=== PATIENT | male | born 1960 | race African-American/Black ===

== ENCOUNTER 2018-12-23 08:59 | Inpatient (IN) | payer OTHER ==
[2018-12-23] MEDS: CEFAZOLIN 2 GM/50 ML (PMX) 50 ML IVPB (10:30)
[2018-12-23] MEDS ORDERED: EPHEDrine 25 MG/5 ML SYG (10:36)
[2018-12-23] MEDS ORDERED: CEFAZOLIN 1 GM INJ ×2 (10:36→17:00)
[2018-12-23] MEDS ORDERED: PHENYLephrine (100 MCG/ML) 10ML SYG (10:36)
[2018-12-23] MEDS ORDERED: MIDAZOLAM 1 MG/ML 2 ML INJ (10:36)
[2018-12-23] MEDS ORDERED: PROPOFOL 20 ML (10:36)
[2018-12-23] MEDS ORDERED: ROCURONIUM 50 MG INJ (10:36)
[2018-12-23] MEDS ORDERED: SEVOFLURANE 15 MIN (10:36)
[2018-12-23] MEDS: LACTATED RINGER'S 1L BAG IV (10:53)
[2018-12-23] MEDS ORDERED: POLYMYXIN/BACITRACIN 1L IRRIG ×2 (12:46→13:07)
[2018-12-23] MEDS ORDERED: THROMBIN 5000 UNIT (RECOTHROM) VIAL (13:06)
[2018-12-23] MEDS ORDERED: GELATIN SIZE 100 SPONGE (13:06)
[2018-12-23] MEDS ORDERED: BUPIVACAINE 0.25%/EPI (SDV) 30 ML INJ (13:07)
[2018-12-23] MEDS ORDERED: hydrALAzine 20 MG INJ ×2 (13:56→14:23)
[2018-12-23] MEDS ORDERED: LABETALOL HCL 20MG INJ ×2 (14:23→17:20)
[2018-12-23] MEDS ORDERED: FAMOTIDINE 20 MG INJ (14:28)
[2018-12-23] MEDS ORDERED: METOCLOPRAMIDE 10 MG INJ (14:28)
[2018-12-23] MEDS ORDERED: ONDANSETRON 4 MG INJ (14:28)
[2018-12-23] MEDS ORDERED: DEXAMETHASONE 4 MG/ML 5 ML INJ (14:28)
[2018-12-23] MEDS: BUPIVACAINE 0.25%/EPI (SDV) 30 ML INJ INJ (14:39)
[2018-12-23] MEDS: THROMBIN 5000 UNIT (RECOTHROM) VIAL TOP (14:40)
[2018-12-23] MEDS: GELATIN SIZE 100 SPONGE TOP (14:40)
[2018-12-23] MEDS: POLYMYXIN/BACITRACIN 1L IRRIG IRR (14:40)
[2018-12-23] MEDS: HEMOSTATIC MATRIX/ THROMBIN 1 EA SYG ZFS (14:41)
[2018-12-23] MEDS ORDERED: OXYCODONE/ACETAMINOPHEN (5/325) TAB PO (15:30)
[2018-12-23] MEDS ORDERED: hydrALAzine 20 MG INJ IV (15:30)
[2018-12-23] MEDS ORDERED: DIPHENHYDRAMINE 50 MG INJ IV (15:30)
[2018-12-23] MEDS ORDERED: LABETALOL HCL 20MG INJ IV (15:30)
[2018-12-23] MEDS ORDERED: HYDROmorphONE 1 MG/5 ML IV SYRINGE IV ×3 (15:30)
[2018-12-23] MEDS ORDERED: METOCLOPRAMIDE 10 MG INJ IV (15:30)
[2018-12-23] MEDS ORDERED: FENTAnyl 50 MCG/ML VIAL IV ×2 (15:30)
[2018-12-23] MEDS ORDERED: NEOSTIGMINE 3 MG/3 ML SYRINGE (17:08)
[2018-12-23] MEDS ORDERED: GLYCOPYRROLATE 0.4 MG INJ (17:08)
[2018-12-23] MEDS ORDERED: ONDANSETRON 4 MG INJ IV (17:30)
[2018-12-23] MEDS ORDERED: AL HYDROX/MG HYDROX/SIMETH 30 ML CUP PO (17:30)
[2018-12-23] MEDS ORDERED: HYDROCODONE/APAP (5/325) TAB PO (17:30)
[2018-12-23] MEDS ORDERED: NALOXONE (0.4 MG/ML) INJ IV (17:30)
[2018-12-23] MEDS ORDERED: NACL 0.9% 3 ML SYG IV (17:30)
[2018-12-23] MEDS ORDERED: PROCHLORPERAZINE 10 MG TAB PO (17:30)
[2018-12-23] MEDS ORDERED: ACETAMINOPHEN 325 MG TAB PO (17:30)
[2018-12-23] MEDS: MEPERIDINE 25 MG INJ IV (17:40)
[2018-12-23] MEDS: ONDANSETRON 4 MG INJ IV (17:40)
[2018-12-23] MEDS: HYDROmorphONE 0.2 MG/ML PCA IV (17:51)
[2018-12-23] MEDS: FENTAnyl 50 MCG/ML VIAL IV ×2 (18:07→18:30)
[2018-12-23] MEDS: CEFAZOLIN 1 GM/50 ML (PMX) 50 ML IVPB ×2 (18:13→23:58)
[2018-12-23] MEDS: DEXTROSE 5%-0.45% NACL 1,000 ML IV (20:42)
[2018-12-24] MEDS: DEXTROSE 5%-0.45% NACL 1,000 ML IV ×2 (03:24→10:10)
[2018-12-24 05:23] LABS: HEMATOCRIT 43.7 % (42.0-52.0); HEMOGLOBIN 14.4 g/dl (14.0-18.0)
[2018-12-24] MEDS: CEFAZOLIN 1 GM/50 ML (PMX) 50 ML IVPB ×2 (05:36→12:09)
[2018-12-24 05:56] LABS: ANION GAP 11 (5-13); BLOOD UREA NITROGEN 11 mg/dl (7-20); CALCIUM 8.9 mg/dl (8.4-10.2); CARBON DIOXIDE 25 mmol/L (21-31); CHLORIDE 103 mmol/L (97-110); CREATININE 0.92 mg/dl (0.61-1.24); Estimated GFR > 60 mL/min (>60); GLUCOSE 148 mg/dl (70-220); POTASSIUM 4.2 mmol/L (3.5-5.1); SODIUM 139 mmol/L (135-144)
[2018-12-24] MEDS: DOCUSATE SODIUM 100 MG CAP PO (08:07)
[2018-12-24] MEDS: ATENOLOL 50 MG TAB PO (08:08)
[2018-12-24] MEDS: HYDROCODONE/APAP (5/325) TAB PO (13:07)
[2018-12-24] MEDS: DEXAMETHASONE 10 MG/ML 1 ML INJ IV (13:07)
== END 2018-12-24 17:45 | disposition home or self-care (01) | DRG 473 ==
LOC: REC 08:59 → MS1 20:21
PROC: 01N10ZZ Release Cervical Nerve, Open Approach (ICD-10-PCS; principal; 2018-12-23 13:00)
PROC: 0RG10A0 Fusion of Cervical Vertebral Joint with Interbody Fusion Device, Anterior Approach, Anterior Column, Open Approach (ICD-10-PCS; 2018-12-23 13:00)
PROC: 0RT30ZZ Resection of Cervical Vertebral Disc, Open Approach (ICD-10-PCS; 2018-12-23 13:00)
DX: M50.022 Cervical disc disorder at C5-C6 level with myelopathy (principal); M50.122 Cervical disc disorder at C5-C6 level with radiculopathy; M48.02 Spinal stenosis, cervical region; I10 Essential (primary) hypertension
CPT/HCPCS: 72050; 80048; 85014; 85018; 86850; 86900; 86901; 88304; 97116; 97161; 97530